=== PATIENT | male | born 1980 | race Caucasian/White ===

== ENCOUNTER 2017-09-28 07:55 | Day surgery (SDC) | payer OTHER ==
[~2017-09-28] VITALS: Ht 185.4 cm; Wt 138.4 kg
[~2017-09-28 07:55] MED LIST: BUPIVACAINE/PF 0.25% ONE; EPINEPHRINE 1 MG/ML, 1ML ONE; LIDOCAINE/PF 0.5% ,50ML ONE; THROMBIN 5,000 UNIT VIAL TP ONE; VANCOMYCIN 1,000 MG ONE
[2017-09-28 08:24] VITALS: BP 108/74
[2017-09-28] MEDS ORDERED: LISI-170 PO (08:32)
[2017-09-28] MEDS ORDERED: LACTATED RINGERS 1,000 ML IV SCH (08:32)
[2017-09-28] MEDS ORDERED: SPIR25TA3 PO (08:32)
[2017-09-28] MEDS ORDERED: ATEN25TA PO (08:32)
[2017-09-28] MEDS ORDERED: ELUX100T PO (08:32)
[2017-09-28] MEDS ORDERED: LIDOCAINE 1%, 2ML ONE (08:35)
[2017-09-28] MEDS ORDERED: LIDOCAINE 1%, 2ML SQ PRN (09:00)
[2017-09-28] MEDS ORDERED: MIDAZOLAM 1 MG/ML, 2ML ONE (09:10)
[2017-09-28] MEDS ORDERED: ROCURONIUM 10 MG/ML,10ML ONE (09:14)
[2017-09-28] MEDS ORDERED: FENTANYL PF 250 MCG/5ML ONE (09:14)
[2017-09-28] MEDS ORDERED: CEFAZOLIN 1,000 MG ONE ×3 (09:14)
[2017-09-28] MEDS ORDERED: PROPOFOL 10 MG/ML, 20ML ONE ×2 (09:14)
[2017-09-28] MEDS ORDERED: GLYCOPYRROLATE 0.4 MG/2 ML, 2ML ONE (09:15)
[2017-09-28] MEDS ORDERED: NEOSTIGMINE 1 MG/ML, 10ML ONE (09:15)
[2017-09-28] MEDS ORDERED: LABETALOL 5MG/ML, 20ML IV PRN (09:30)
[2017-09-28] MEDS ORDERED: OXYcodone 5 MG/5 ML ORAL.SOL UDC PO PRN (09:30)
[2017-09-28] MEDS ORDERED: EPHEDRINE 50 MG/ML, 1ML IVPush PRN (09:30)
[2017-09-28] MEDS ORDERED: DIAZEPAM 5 MG/ML, 2ML IVPush PRN (09:30)
[2017-09-28] MEDS ORDERED: METOPROLOL 1 MG/ML, 5ML IV PRN (09:30)
[2017-09-28] MEDS ORDERED: MEPERIDINE/PF 25MG/0.5ML IVPush PRN (09:30)
[2017-09-28] MEDS ORDERED: HYDROmorphone 1 MG/ML, 1ML IV PRN (09:30)
[2017-09-28] MEDS ORDERED: ALBUTEROL SULFATE 2.5 MG/3 ML NPPB PRN (09:30)
[2017-09-28] MEDS ORDERED: PROMETHAZINE 12.5 MG SUPP PR PRN (09:30)
[2017-09-28] MEDS ORDERED: ONDANSETRON 2MG/ML, 2ML IVPush PRN (09:30)
[2017-09-28] MEDS ORDERED: FENTANYL PF 100 MCG/2ML IV PRN (09:30)
[2017-09-28] MEDS ORDERED: hydrALAzine 20 MG/ML, 1ML IV PRN (09:30)
[2017-09-28] MEDS ORDERED: GABAPENTIN 300 MG CAPSULE ONE ×2 (09:55)
[2017-09-28] MEDS ORDERED: ACETAMINOPHEN 500 MG TABLET ONE ×2 (09:55)
[2017-09-28] MEDS ORDERED: KETOROLAC 30 MG/1 ML ONE (10:12)
[2017-09-28] MEDS ORDERED: PROPOFOL 50 ML ONE (10:26)
[2017-09-28] MEDS ORDERED: VANCOMYCIN 1,000 MG ONE (10:56)
[2017-09-28] MEDS ORDERED: OXYcodone 5 MG/5 ML ORAL.SOL UDC ONE (12:44)
[2017-09-28] MEDS ORDERED: ACETAMINOPHEN 650 MG/20.3 ML UDC ONE (12:44)
[2017-09-28] MEDS ORDERED: ACETAMINOPHEN 650 MG/20.3 ML UDC PO PRN (13:00)
== END 2017-09-28 15:25 ==
LOC: OUT 07:55
PROVIDERS: ATTEND Orthopaedic Surgery Orthopaedic Surgery of the Spine
DX: M48.061 Spinal stenosis, lumbar region without neurogenic claudication (principal); I10 Essential (primary) hypertension; I42.9 Cardiomyopathy, unspecified; I51.7 Cardiomegaly; Z98.890 Other specified postprocedural states; E66.01 Morbid (severe) obesity due to excess calories; Z68.41 Body mass index [BMI] 40.0-44.9, adult; Z88.0 Allergy status to penicillin
CPT/HCPCS: 63047; 72100; J0171; J0690; J1885; J2001; J2250; J2704; J2710; J3010; J3370; J3490; J7120